=== PATIENT | male | born 1990 | race Caucasian/White ===

== ENCOUNTER 2022-08-23 09:41 | Emergency (ER) | payer SELFPAY ==
[~2022-08-23] VITALS: Ht 175 cm; Wt 123.0 kg
[2022-08-23] MEDS ORDERED: OSLT75C PO (10:30)
--- NOTE | 2022-08-23 10:30 | ED General ---
General Chief Complaint: Cough/Cold/Flu Symptoms Stated Complaint: BODY ACHES; FEVER; SORE THROAT Nursing Triage Note: Patient has presented to ER with cc of body aches, fever, chills, and a sore throat that started this morning. Patient reports that he has a co-worker with flu a and he believes that he has the flu. He has not taken anything for his symptoms. Source of Information: Patient Exam Limitations: No Limitations History of Present Illness Date Seen by Provider: Aug 23, 2022 Time Seen by Provider: 09:46 Initial Comments This 31-year-old gentleman presents to the emergency room with flulike symptoms that started this morning including myalgia, chills, and sore throat. He denies vomiting or diarrhea. His worst symptom is sore throat. He had a influenza exposure from a coworker. Allergies and Home Medications Patient Home Medication List Home Medication List Reviewed: Yes Oseltamivir Phosphate (Tamiflu) 75 Mg Cap, 75 MG PO BID Prescribed by: REESE ARREDONDO on 08/23/22 1030 Review of Systems Review of Systems Constitutional: see HPI EENTM: see HPI Respiratory: no symptoms reported Cardiovascular: no symptoms reported Gastrointestinal: no symptoms reported Genitourinary: no symptoms reported Musculoskeletal: see HPI Skin: no symptoms reported Psychiatric/Neurological: No Symptoms Reported Hematologic/Lymphatic: No Symptoms Reported Immunological/Allergic: no symptoms reported Past Eezbinq-Phxriw-Awgmhg Hx Patient Social History Tobacco Use?: Yes Tobacco type used: Cigarettes Smoking Status: Current Everyday Smoker Use of E-Cig and/or Vaping dev: No Substance use?: No Alcohol Use?: Yes Alcohol type: Beer Alcohol Frequency: Couple times a week Pt feels they are or have been: No Past Medical History Respiratory: No Cardiac: No Neurological: No Genitourinary: No Gastrointestinal: No Musculoskeletal: No Endocrine: No HEENT: No Cancer: No Psychosocial: No Physical Exam Vital Signs Vital Signs - First Documented 08/23/22 09:51 Temp 39.0 Pulse 122 Resp 18 B/P (MAP) 153/97 (115) Pulse Ox 99 O2 Delivery Room Air Capillary Refill : Height, Weight, BMI Height: '" Weight: lbs. oz. kg; 40.00 BMI Method: General Appearance: No Apparent Distress, WD/WN HEENT: PERRL/EOMI, Pharynx Normal, Pharyngeal Erythema ( pharynx), Other (Hyperemic ear canals, mildly erythematous, mild injection of the conjunctiva and sclera) Neck: Normal Inspection Respiratory: Lungs Clear, Normal Breath Sounds, No Accessory Muscle Use Cardiovascular: Regular Rate, Rhythm, No Edema, No Murmur Gastrointestinal: Non Tender, Soft; No Distended Extremity: Normal Inspection, No Pedal Edema Neurologic/Psychiatric: Alert, Oriented x3, No Motor/Sensory Deficits, Normal Mood/Affect Skin: Normal Color, Warm/Dry Progress/Results/Core Measures Suspected Sepsis SIRS Temperature: Pulse: 122 Respiratory Rate: 18 Blood Pressure 153 /97 Mean: 115 Results/Orders Lab Results Laboratory Tests Test 08/23/22 09:50 Range/Units Influenza Type A (RT-PCR) Detected H Not Detecte Influenza Type B (RT-PCR) Not Detected Not Detecte SARS-CoV-2 RNA (RT-PCR) Not Detected Not Detecte My Orders Orders - REESE CELESTIN MD Covid 19 Inhouse Test (08/23/22 09:46) Influenza A And B By Pcr (08/23/22 09:46) Vital Signs/I&O 08/23/22 09:51 Temp 39.0 Pulse 122 Resp 18 B/P (MAP) 153/97 (115) Pulse Ox 99 O2 Delivery Room Air Capillary Refill : Blood Pressure Mean: 115 Progress Note : Progress Note Patient declined any symptomatic care at this time. He did test positive for influenza A. He would like to try obtaining a prescription for Tamiflu. See discharge instructions for further discussion. Departure Impression Primary Impression: Influenza A Disposition: 01 HOME, SELF-CARE Condition: Stable Departure-Patient Inst. Decision time for Depature: 10:29 Referrals: NO,LOCAL PHYSICIAN (PCP/Family) Primary Care Physician Patient Instructions: Flu, Adult (DC) Add. Discharge Instructions: You have influenza A. Drink plenty of clear liquids to stay well-hydrated. For pain and fever you may take ibuprofen up to 600 mg every 6 hours as needed and/or Tylenol (acetaminophen) up to 1000 mg every 6 hours as needed. Complete the entire 10 doses of Tamiflu. Do not stop the medication early even if you are feeling better. Avoid exposure to other people until fever free without the use of any fever reducing medications for at least 24 hours. Return to care if you have worsening symptoms despite following these instructions. All discharge instructions reviewed with patient and/or family. Voiced understanding. Scripts Oseltamivir Phosphate (Tamiflu) 75 Mg Cap 75 MG PO BID, #10 CAP Prov: REESE CELESTIN MD 08/23/22 Work/School Note: Work Release Form Date Seen in the Emergency Department: Aug 23, 2022 Return to Work: Aug 25, 2022 Restrictions: Return-No Fever (24hrs), Return-No Vomiting(24hrs) REESE CELESTIN MD Aug 23, 2022 10:30
[2022-08-23 10:31] VITALS: BP 153/97
== END 2022-08-23 10:32 | disposition home or self-care (01) ==
LOC: ER FS 09:45
DX: J10.1 Influenza due to other identified influenza virus with other respiratory manifestations (principal); F17.210 Nicotine dependence, cigarettes, uncomplicated; Z20.822 Contact with and (suspected) exposure to COVID-19; Z28.310 Unvaccinated for COVID-19
CPT/HCPCS: 87636